=== PATIENT | male | born 1965 | race Two or more races ===

== ENCOUNTER 2024-07-21 11:41 | Emergency (ER) | payer MEDICAID, SELFPAY ==
--- NOTE | 2024-07-21 11:54 | EKG_ITS ---
[facility] Test Date: 2024-07-21 Pat Name: NALDO MEJIA Department: Room: - Gender: Male [employer]worker [employer]: : 1965 Requested By: Colby Alcaraz (ALEJANDRO) Order Number: [id number] Reading MD: Colby Alcaraz (INFUSION RN) Measurements Intervals [place] Rate: 67 P: 73 ME: 161 QRS: -23 QRSD: 90 T: 58 QT: 369 QTc: 391 Interpretive Statements SINUS RHYTHM BORDERLINE LEFT AXIS DEVIATION [QRS AXIS < -20] No previous ECG available for comparison /store/S0/[id number]
--- NOTE | 2024-07-21 12:03 | XR_ITS ---
Examination: PA lateral chest 2 views TECHNIQUE: Upright PA lateral chest 2 views Exam date and time: July 21, 2024 1210 hours INDICATIONS: Chest pain 3 years worse today with rectal bleeding also intermittent 3 years FINDINGS: Normal heart size Moderate hyperexpansion No pneumonia or pulmonary edema 6 mm nodule left lower lobe IMPRESSION: COPD In the absence of prior chest films recommend 3 month follow-up PA chest to document stability of 6 mm nodule left lower lobe
--- NOTE | 2024-07-21 12:03 | PD.EDRME ---
Rapid Medical Screening Exam RME Arrival date/time: 07/21/24 11:41 59-year-old male presents the emergency department complaints of right-sided chest pain and rectal bleeding Chief Complaint: Chest Pain
[2024-07-21 12:11] VITALS: BP 118/74; PULSE 59; RESP 18; TEMP 36.4; O2SAT 98
[2024-07-21 12:12] VITALS: BMI 22.8
[2024-07-21 12:31] LABS: Basophils % (Auto) 1 % (0-2.5); Eosinophils # (Auto) 0.1 Thou/mm3 (0.0-0.5); Eosinophils % (Auto) 1 % (0-10); Hemoglobin 13.2 g/dL (13.5-16.0); Immature Granulocytes % (Auto) 0 % (0-0); Immature Granulocytes Auto 0.02 Thou/mm3 (0.00-0.00); Lymphocytes # (Auto) 1.7 Thou/mm3 (1.0-4.8); Lymphocytes % (Auto) 32 % (10-50); Mean Corpuscular HGB Conc 34.7 g/dl (31.0-37.0); Mean Corpuscular Hemoglobin 32.5 pg (25.0-35.0); Mean Corpuscular Volume 94 fL (80-100); Monocytes # (Auto) 0.5 Thou/mm3 (0.0-0.8); Monocytes % (Auto) 8 % (0-12); Neutrophils # (Auto) 3.1 Thou/mm3 (1.8-7.7); Neutrophils % (Auto) 58 % (37-80); Nucleated Red Blood Cell % 0 /100 WBC (0); Platelet Count 161 Thou/mm3 (140-440); RDW Standard Deviation 44.2 fL (35.1-43.9); Red Blood Count 4.06 Miln/mm3 (4.50-5.90); White Blood Count 5.4 Thou/mm3 (3.8-10.6)
[2024-07-21 12:46] LABS: Partial Thromboplastin Time 25.9 Seconds (22.0-36.0); Prothrombin Time 11.2 Seconds (9.0-12.2)
[2024-07-21 12:55] LABS: Alanine Aminotransferase 10 U/L (10-49); Albumin, Serum 5.1 gm/dL (3.5-5.0); Albumin/Globulin Ratio 1.8 (1.2-2.2); Alkaline Phosphatase 80 U/L (46-116); Anion Gap 7 (7-16); Aspartate Amino Transferase < 8 U/L (0-34); BUN/Creatinine Ratio 13 Ratio (12-20); Bilirubin,Total 0.8 mg/dL (0.3-1.2); Blood Urea Nitrogen 13 mg/dL (9-23); Calcium 10.1 mg/dL (8.3-10.6); Calcium (Corrected) 10.1 mg/dL (8.5-10.1); Carbon Dioxide 28.3 mMol/L (20.0-31.0); Chloride 103 mMol/L (98-107); Estimated Creatinine Clearance 68.2 mL/min (>60); Globulin 2.8 gm/dL (2.3-3.5); Glucose 72 mg/dL (74-106); Lipase 64 U/L (12-53); Magnesium 2.1 mg/dL (1.6-2.6); Osmolality,Calculated 274 (275-295); Potassium 4.3 mMol/L (3.4-5.1); Sodium 138 mMol/L (136-145); Total Protein 7.9 gm/dL (5.7-8.2); Troponin I < 0.020 ng/mL (0.0-0.045); eGFR > 60 See Note
[2024-07-21 13:09] LABS: B-Type Natriuretic Peptide < 20 pg/mL (0-100)
[2024-07-21 13:58] LABS: Collection Type, Urine Clean Catch; Squamous Epithelial Cell,Urine 0 /hpf (0-5); WBC,Urine 0 /hpf (0-5)
[2024-07-21 14:07] LABS: Bilirubin,Urine Negative (Negative); Blood,Urine Negative (Negative); Clarity,Urine Clear (Clear/Hazy); Color,Urine Lt-Yellow (Lt Yel-Yel); Glucose, Urine Negative (Negative); Ketones,Urine Negative (Negative); Leukocyte Esterase,Urine Negative (Negative); Nitrite,Urine Negative (Negative); PH,Urine 6.5 (5.0-7.0); Protein,Urine Negative (Neg - Trace); RBC,Urine < 1 /hpf (0-3); Specific Gravity,Urine 1.019 (1.001-1.035); Urobilinogen,Urine Negative mg/dL (0.0-1.0)
[2024-07-21 14:14] LABS: Amphetamine/Methamp Scrn,U Negative (Negative); Barbiturate Screen,Urine Negative (Negative); Benzodiazepines Screen,Urine Negative (Negative); Benzoylecgonine Screen, Ur Negative (Negative); Fentanyl Screen,Urine Negative (Negative); Opiate Screen,Urine Negative (Negative); THC Screen,Urine Negative (Negative)
[2024-07-21 15:45] VITALS: BP 122/77; PULSE 60; RESP 16; TEMP 37.2; O2SAT 99
--- NOTE | 2024-07-21 16:35 | PD.EDCHEST ---
ED Chest Pain RME/HPI General Chief Complaint: Chest Pain Stated Complaint: CHEST PAIN WITH RECTAL BLEEDING X 3 YRS Arrival date/time: 07/21/24 11:41 Limitations: no limitations RME / HPI RME / HPI narrative: 07/21/24 11:41 59-year-old male presents the emergency department complaints of right-sided chest pain and rectal bleeding DR. SHERMAN DAO ED EVALUATION: 59 year old male presents to the ED for complaint of chest pain today. States his chest pain had been on/off over the course of 3 years and located to the left side. However noted in the last month the pain is occurring more frequently while sleeping/resting/working and located on the right side. States last night he had difficulty sleeping due to the pain that was accompanied by shortness of breath. Denies any known aggravating/modifying factors. Denies any fevers, chills, sweats, cough, abdominal pain, n/v/d, or urinary symptoms. Patient additionally reports rectal bleeding going on for years and previously has consulted with PCP. States the rectal bleeding is worse with doing any strenuous work and reportedly was going to follow up with a surgeon which he has yet to do. Family hx: Heart attack Related Data Previous Rx's ?Medication ?Instructions ?Recorded ibuprofen 600 mg tablet 600 mg PO Q8H PRN fever or pain 05/31/19 #30 tabs ibuprofen 600 mg tablet 600 mg PO Q8H PRN pain #30 tabs 10/13/20 hydroxyzine HCl 25 mg tablet 25 mg PO TID PRN anxiety #20 tabs 07/21/24 Allergies Allergy/AdvReac Type Severity Reaction Status Date / Time No Known Allergies Allergy Verified 07/21/24 11:43 Review of Systems Review of Systems Narrative Review of Systems: GEN: No fever, no chills, no weight loss EYES: No discharge, no visual changes, no pain HEENT: No ear pain, no congestion, no sore throat PULM: +shortness of breath, no cough, no congestion CV: + chest pain, no palpitations GI: No nausea, no vomiting, no diarrhea, no pain, no constipation, +rectal bleeding per patient : No frequency, no urgency, no dysuria MUSC/SKEL: No joint pain, no back pain SKIN: No rash NEURO: No weakness, no headache Past Medical History Past Medical History CARDIAC: Negative Congestive Heart Failure RESPIRATORY: Negative Chronic Obstructive Pulmonary Disease (COPD) GENITOURINARY: Negative Renal Disease ENDOCRINE: Negative Diabetes Mellitus Type 1 or Diabetes Mellitus Type 2 Social History SMOKING STATUS: Never smoker ED Exam General Limitations: Present no limitations General appearance: Present alert and in no apparent distress Head Head exam: Present atraumatic, normocephalic and normal inspection Eye Eye exam: Present normal appearance, PERRL and EOMI ENT ENT exam: Present normal exam, normal oropharynx and mucous membranes moist Neck Neck exam: Present normal inspection, full ROM and trachea midline Chest Chest inspection: Present normal inspection and symmetric chest wall rise Respiratory Respiratory exam: Present normal lung sounds bilaterally Cardiovascular Cardiovascular exam: Present regular rate, normal rhythm and normal heart sounds Abdominal Exam Abdominal exam: Present soft and normal bowel sounds Extremities Exam Extremities exam: Present normal inspection and full ROM Back Exam Back exam: Present normal inspection and full ROM Neurological Exam Neurological exam: Present alert, oriented X3 and CN II-XII intact Psychiatric Psychiatric exam: Present normal affect and normal mood Skin Skin exam: Present warm, dry, intact and normal color Course Course Course Narrative: chest xray ordered to help determine etiology of chest pain and shortness of breath. Quality Measures none Orders Category Date Time Status EKG (ED ONLY) *Do not use* NOW Care 07/21/24 11:54 Completed EKG (ED Only) Stat Exams 07/21/24 11:54 Draft XR chest 2V Stat Exams 07/21/24 12:03 Completed B-Type Natriuretic Peptide Stat Lab 07/21/24 12:20 Completed CBC Stat Lab 07/21/24 12:20 Completed Comprehensive Metabolic Panel Stat Lab 07/21/24 12:20 Completed Drug Screen,Urine Stat Lab 07/21/24 13:45 Completed Lipase Stat Lab 07/21/24 12:20 Completed Magnesium Stat Lab 07/21/24 12:20 Completed Partial Thromboplastin Time Stat Lab 07/21/24 12:20 Completed Prothrombin Time with INR Stat Lab 07/21/24 12:20 Completed Troponin I Stat Lab 07/21/24 12:20 Completed Urinalysis Stat Lab 07/21/24 13:45 Completed Reevaluation(s) Reevaluation #1: Patient remains clinically stable throughout the emergency department visit. We reviewed all the results, analysis, and treatment plans. Patient is amenable to discharge. Strict return precautions were outlined. Patient was discharged in stable condition. Vital Signs Vital signs: Vital Signs Temperature 97.5 F 07/21/24 12:11 Pulse Rate 59 L 07/21/24 12:11 Respiratory Rate 18 07/21/24 12:11 Blood Pressure 118/74 07/21/24 12:11 Pulse Oximetry (%) 98 07/21/24 12:11 Oxygen Delivery Method Room Air 07/21/24 12:11 Pulse ox is 98% on room air which is adequate. Chest Pain MDM Narrative MDM Narrative:: Emilie Peña am scribing for and in the presence of Dr. Seo. Patient data External records reviewed:: [facility] previous records (I reviewed ED visit on 10/13/2020) Clinical information provided by:: patient Social determinants that could affect healthcare access:: none Patient has the following chronic illnesses:: None How is presenting disease/condition affected by chronic disease/condition?: no chronic disease Evaluation data The following diagnostics were reviewed and interpreted by me:: lab results, radiology exam(s) and EKG tracing(s) (NSR, HR 67, normal axis, no ectopy, LAD ) Lab and/or radiology exams considered but not ordered:: None Interpretation Summary: Ordering Physician: Colby Alcaraz NP, NP Date of Service: 07/21/24 Procedure(s): XR chest 2V Accession Number(s): [id number] cc: Lissa LUKE)Colby NP; Praveen Vasquez MD; Mariann Velázquez NP~ Examination: PA lateral chest 2 views TECHNIQUE: Upright PA lateral chest 2 views Exam date and time: July 21, 2024 1210 hours INDICATIONS: Chest pain 3 years worse today with rectal bleeding also intermittent 3 years FINDINGS: Normal heart size Moderate hyperexpansion No pneumonia or pulmonary edema 6 mm nodule left lower lobe IMPRESSION: COPD In the absence of prior chest films recommend 3 month follow-up PA chest to document stability of 6 mm nodule left lower lobe Dictated By: Praveen Vasquez MD Signed By: <Electronically signed by Praveen Vasquez MD in OV> 07/21/24 1253 Medications / Prescriptions Medications or Prescriptions considered but not ordered:: None Medication administrations:: None Consultations Consultation(s) initiated? (list below): No Diagnosis Most likely diagnosis given after review of the tests above:: Anxiety Atypical chest pain Painless rectal bleeding Admission Indicated Admission indicated?: not indicated Admission Request Was there a request for admission?: No Disposition Plan Disposition Plan: Discharge Discharge Attestation Discharge Attestation: The patient and all family members were given an opportunity to ask questions and understood the discharge instructions. Discharge instructions specifically effects, indications for sooner follow up or return to the emergency department, and the expected course of current diagnosis. Patient condition: Stable Discharge Plan Plan Patient Disposition: HOME (Self Care) Disposition Comment: Stable for discharge Patient condition on transfer: Stable Prescriptions/Referrals Prescriptions/Med Rec: New hydroxyzine HCl 25 mg tablet 25 mg PO TID PRN (Reason: anxiety) Qty: 20 0RF Rx Instructions: Probable anxiety attacks No Action ibuprofen 600 mg tablet 600 mg PO Q8H PRN (Reason: fever or pain) Qty: 30 0RF ibuprofen 600 mg tablet 600 mg PO Q8H PRN (Reason: pain) Qty: 30 0RF Referrals: Luisana Hernadez MD [Physician] - In 1 week Mariann Velázquez NP [Primary Care Provider] - In 1 week Problem List Clinical Impression: Anxiety, Atypical chest pain, Painless rectal bleeding Patient/Caregiver Discharge Instructions Discharge Activity: activity as tolerated Education Materials: Bleeding Rectal Evaluate Treat, ED Anxiety Reaction Additional Instructions: Return to the emergency department for any worsening or any further medical problems Please follow-up with your primary care doctor within the next several days. For your rectal bleeding you can follow-up with Dr. Hernadez. Dr. Hernadez is a automation developer who is a specialist in the colon. You may or may not need a camera put up into your colon Print Language: [place] Islander Stand Alone Forms: Josie Award Info., Patient Portal Info Letter
== END 2024-07-21 18:02 | disposition home or self-care (01) ==
PROVIDERS: Nurse Practitioner Primary Care; Emergency Provider Emergency Medicine; PCP Nurse Practitioner Family
DX: J44.9 Chronic obstructive pulmonary disease, unspecified (principal); F41.9 Anxiety disorder, unspecified; K62.5 Hemorrhage of anus and rectum
CPT/HCPCS: 36415; 71046; 80053; 80307; 81001; 83690; 83735; 83880; 84484; 85025; 85610; 85730; 93005; 99283

== ENCOUNTER 2025-06-26 13:26 | Emergency (ER) | payer MEDICAID, SELFPAY ==
[2025-06-26 13:33] VITALS: BP 116/76; PULSE 75; RESP 16; TEMP 36.5; O2SAT 98
--- NOTE | 2025-06-26 13:37 | EKG_ITS ---
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
[2025-06-26 13:38] VITALS: PULSE 63; RESP 16; O2SAT 98; BMI 24.3
--- NOTE | 2025-06-26 13:59 | XR_ITS ---
Examination: CT brain head without contrast. 2-D sagittal coronal reconstructions Date and time of exam: June 26, 2025, 1425 hours, comparison May 30, 2019 INDICATIONS: Onset generalized head pain today CTDI: vol (mGy): 53.4 DLP: (mGycm): 1029 Technique: Multiple CT axial sections of the brain have been obtained, 5 mm slice thickness. Contrast has not been administered. 2-D sagittal, coronal reconstructions have been obtained Low dose protocols were performed. One or more of the following dose reduction techniques were used; automated exposure control, adjustment of the mA and/or KV according to patient size, use of iterative reconstruction technique. Findings: No significant ventricular enlargement. Intra-axial or extra-axial hemorrhage density is not seen. No mass effect or midline shift Basal cisterns are not remarkable. Fourth ventricle is midline. Cranial vault intact. Impression: Negative for acute hemorrhage, mass effect or midline shift Advise clinical correlation and follow-up accordingly
--- NOTE | 2025-06-26 14:00 | XR_ITS ---
EXAMINATION: AP chest single view TECHNIQUE: AP Right chest single view Date and time: June 26, 2025, 1436 hours, comparison July 21, 2024 INDICATIONS: Headache shortness of breath today. FINDINGS: Normal heart size No pneumonia or pulmonary edema Prominent osteopenia IMPRESSION: No active disease
--- NOTE | 2025-06-26 14:02 | EDNOTE_ITS ---
ED Syncope RME/HPI General Chief Complaint: Fall Stated Complaint: SYNCOPE Time Seen by Provider: 06/26/25 13:53 Arrival date/time: 06/26/25 13:26 54-year-old male patient with recent diagnosis of shingles in his back, just came from the pharmacy to get his his shingles medication, when he arrived home he was cooking, and patient developed syncope twice. Patient does not remember what happened. Patient family called 911. On my initial evaluation patient was noted to be having blood pressure that is on the above 90s systolic. Patient is alert and oriented x 3 however complaining of headache on the right side and dizziness. Denies any chest pain no abdominal pain no vomiting no fever. Patient received 800 cc of IV LR and blood pressure now went up to 116/76 Related Data Previous Rx's ?Medication ?Instructions ?Recorded ibuprofen 600 mg tablet 600 mg PO Q8H PRN fever or p ain 05/31/19 #30 tabs ibuprofen 600 mg tablet 600 mg PO Q8H PRN pain #30 t abs 10/13/20 hydroxyzine HCl 25 mg tablet 25 mg PO TID PRN anxiety #20 tabs 07/21/24 Allergies Allergy/AdvReac Type Severity Reaction Status Date / Time No Known Allergies Allergy Verified 07/21/24 11:43 Review of Systems Review of Systems Narrative Review of Systems: Review of system reviewed and within normal limits except mentioned in HPI ED Exam Narrative Physical exam: VITAL SIGNS: Reviewed. GENERAL APPEARANCE: Alert and interactive, follows commands, no acute distress, HEAD AND FACE: Non-traumatic. ENT: PERRL, pink conjunctivitis, eyelid no trauma, Mucous membrane moist. NECK: Supple, nontender, no nuchal rigidity. CHEST: No tenderness, no crepitus, no paradoxical movement, no retractions. LUNGS: Clear, well ventilated, symmetric, no rales, no wheezing, no ronchi, no stridor, good breath sounds bilaterally. HEART: Regular rate, regular rhythm, no murmur, no gallops. ABDOMEN: Soft, positive bowel sounds, nondistended, no guarding, nontender, no rebound, no masses, RECTAL: Deferred. GENITAL: Deferred. NEUROLOGICAL: Gross motor function intact sensory function intact, Appropriate for age. MUSCULOSKELETAL: low back nontender, full range of motion. EXTREMITIES: Nontender, full range of motion. SKIN: Color pink, dry, no rash, no lacerations, no abrasions, no contusions. LYMPHATICS: Deferred. Course Quality Measures none Orders Category Date Time Status EKG (ED ONLY) *Do not use* NOW Care 06/26/25 13:37 Completed EKG (ED ONLY) *Do not use* NOW Care 06/26/25 14:[address] head/brain wo con Stat Exams 06/26/25 13:59 Completed EKG (ED Only) Stat Exams 06/26/25 13:37 Draft EKG (ED Only) Stat Exams 06/26/25 13:59 Ordered XR chest 1V Stat Exams 06/26/25 14:00 Completed CBC Stat Lab 06/26/25 14:07 Completed Comprehensive Metabolic Panel Stat Lab 06/26/25 14:07 Completed Partial Thromboplastin Time Stat Lab 06/26/25 14:07 Completed Troponin I Stat Lab 06/26/25 14:07 Completed Urinalysis, C/S if Indicated Stat Lab 06/26/25 14:38 Completed Ringers Lactated 1000 ml [Lactated Ringers] 1,000 ml Med 06/26/25 14:00 Discontinued IV 999 mls/hr Vital Signs Vital signs: Vital Signs Temperature 97.7 F 06/26/25 13:33 Pulse Rate 75 06/26/25 13:33 Respiratory Rate 16 06/26/25 13:33 Blood Pressure 116/76 06/26/25 13:33 Pulse Oximetry (%) 98 06/26/25 13:33 Oxygen Delivery Method Room Air 06/26/25 13:33 Syncope MDM Narrative MDM Narrative:: 06/26/25 13:26 54-year-old male patient with recent diagnosis of shingles in his back, just came from the pharmacy to get his his shingles medication, when he arrived home he was cooking, and patient developed syncope twice. Patient does not remember what happened. Patient family called 911. On my initial evaluation patient was noted to be having blood pressure that is on the above 90s systolic. Patient is alert and oriented x 3 however complaining of headache on the right side and dizziness. Denies any chest pain no abdominal pain no vomiting no fever. Patient received 800 cc of IV LR and blood pressure now went up to 116/76 EKG shows sinus rhythm, ventricular rate of [address] segment elevation depression noted. Laboratory workup all came back unremarkable. CT scan of the head came back normal chest x-ray came back unremarkable patient blood pressure was noted to be 116/76, was noted to be walking to the restroom without recurrence of syncope. He is stable for charged home. Patient data External records reviewed:: None Clinical information provided by:: patient Social determinants that could affect healthcare access:: none Patient has the following chronic illnesses:: None How is presenting disease/condition affected by chronic disease/condition?: no chronic disease Evaluation data The following diagnostics were reviewed and interpreted by me:: lab results, radiology exam(s) and EKG tracing(s) Lab and/or radiology exams considered but not ordered:: None Interpretation Summary: See above none Medications / Prescriptions Medications or Prescriptions considered but not ordered:: None Medication administrations:: Medication Administration History Discontinued Medications Lactated Ringer's (Lactated Ringers) 1,000 mls @ 999 mls/hr IV .Q1H1M ONE Stop: 06/26/25 15:00 Last Infusion: 06/26/25 15:12 Dose: Infused Documented By: Admin: 06/26/25 14:07 Dose: 999 mls/hr Documented By: ESTEFANY IV fluids Consultations Consultation(s) initiated? (list below): No Diagnosis Syncope Differential Diagnosis: syncope due to orthostatic hypotension, vasovagal syncope and dehydration Most likely diagnosis given after review of the tests above:: Syncope Admission Indicated Admission indicated?: not indicated Admission Request Was there a request for admission?: No Disposition Plan Disposition Plan: Discharge Discharge Attestation Discharge Attestation: The patient and all family members were given an opportunity to ask questions and understood the discharge instructions. Discharge instructions specifically effects, indications for sooner follow up or return to the emergency department, and the expected course of current diagnosis. Patient condition: Stable Discharge Plan Plan Patient Disposition: HOME (Self Care) Discharge Disposition comment: stable Prescriptions/Referrals Prescriptions/Med Rec: No Action ibuprofen 600 mg tablet 600 mg PO Q8H PRN (Reason: fever or pain) Qty: 30 0RF ibuprofen 600 mg tablet 600 mg PO Q8H PRN (Reason: pain) Qty: 30 0RF hydroxyzine HCl 25 mg tablet 25 mg PO TID PRN (Reason: anxiety) Qty: 20 0RF Rx Instructions: Probable anxiety attacks Problem List Clinical Impression: Syncope Patient/Caregiver Discharge Instructions Discharge Activity: activity as tolerated Education Materials: Causes of Syncope Additional Instructions: Thank you for the opportunity for serving you today. You are stable for discharged . You are advised to: Follow-up with your PCP in 1 to 2 days Return to ED for worsening of symptoms Increase oral fluids Print Language: Ukrainian Stand Alone Forms: Josie Award Info., Patient Portal Info Letter PA/BEATRIZ Supervising Physician DANETTE/BEATRIZ Supervising Physician: MD Preethi
[2025-06-26] MEDS: RINGERS LACTATED 1000 ML 1,000 ML 999 ML IV (14:07)
[2025-06-26 14:25] LABS: Basophils # (Auto) 0.0 Thou/mm3 (0.0-0.2); Basophils % (Auto) 0 % (0-2.5); Eosinophils # (Auto) 0.0 Thou/mm3 (0.0-0.5); Eosinophils % (Auto) 0 % (0-10); Hematocrit 35.5 % (41.0-53.0); Hemoglobin 12.6 g/dL (13.5-16.0); Immature Granulocytes Auto 0.02 Thou/mm3 (0.00-0.00); Lymphocytes # (Auto) 1.8 Thou/mm3 (1.0-4.8); Lymphocytes % (Auto) 35 % (10-50); Mean Corpuscular HGB Conc 35.5 g/dl (31.0-37.0); Mean Corpuscular Hemoglobin 32.0 pg (25.0-35.0); Mean Corpuscular Volume 90 fL (80-100); Monocytes # (Auto) 0.4 Thou/mm3 (0.0-0.8); Monocytes % (Auto) 8 % (0-12); Neutrophils # (Auto) 2.9 Thou/mm3 (1.8-7.7); Neutrophils % (Auto) 56 % (37-80); Nucleated Red Blood Cell # 0.00 Thou/mm3 (0.00-0.00); Nucleated Red Blood Cell % 0 /100 WBC (0); Platelet Count 179 Thou/mm3 (140-440); RDW Standard Deviation 45.1 fL (35.1-43.9); Red Blood Count 3.94 Miln/mm3 (4.50-5.90); White Blood Count 5.1 Thou/mm3 (3.8-10.6)
[2025-06-26 14:39] LABS: Partial Thromboplastin Time 23.1 Seconds (22.0-36.0)
[2025-06-26 14:46] LABS: Alanine Aminotransferase 129 U/L (10-49); Albumin, Serum 4.3 gm/dL (3.5-5.0); Albumin/Globulin Ratio 1.8 (1.2-2.2); Alkaline Phosphatase 101 U/L (46-116); Anion Gap 7 (7-16); Aspartate Amino Transferase 48 U/L (0-34); BUN/Creatinine Ratio 11 Ratio (12-20); Bilirubin,Total 0.8 mg/dL (0.3-1.2); Blood Urea Nitrogen 10 mg/dL (9-23); Calcium 9.5 mg/dL (8.3-10.6); Calcium (Corrected) 9.5 mg/dL (8.5-10.1); Carbon Dioxide 27.6 mMol/L (20.0-31.0); Chloride 106 mMol/L (98-107); Creatinine (Component) 0.9 mg/dL (0.6-1.3); Estimated Creatinine Clearance 80.7 mL/min (>60); Globulin 2.4 gm/dL (2.3-3.5); Glucose 88 mg/dL (74-106); Osmolality,Calculated 279 (275-295); Potassium 3.9 mMol/L (3.4-5.1); Sodium 141 mMol/L (136-145); Total Protein 6.7 gm/dL (5.7-8.2); Troponin I < 0.020 ng/mL (0.0-0.045); eGFR > 60 See Note
[2025-06-26 14:52] LABS: Collection Type, Urine Clean Catch
[2025-06-26 15:12] LABS: Bacteria,Urine Rare; Bilirubin,Urine Negative (Negative); Blood,Urine Negative (Negative); Color,Urine Lt-Yellow (Lt Yel-Yel); Culture Indicated,Urine Not Indicated; Glucose, Urine Negative (Negative); Ketones,Urine Negative (Negative); Leukocyte Esterase,Urine Negative (Negative); Nitrite,Urine Negative (Negative); PH,Urine 7.5 (5.0-7.0); Protein,Urine Negative (Neg - Trace); RBC,Urine 6 /hpf (0-3); Specific Gravity,Urine 1.021 (1.001-1.035); Squamous Epithelial Cell,Urine < 1 /hpf (0-5); Urobilinogen,Urine Negative mg/dL (0.0-1.0); WBC,Urine 2 /hpf (0-5)
[2025-06-26 15:26] LABS: Clarity,Urine Hazy (Clear/Hazy)
[2025-06-26 16:07] VITALS: BP 134/83; PULSE 61; RESP 18; TEMP 36.7; O2SAT 96
== END 2025-06-26 16:14 | disposition home or self-care (01) ==
LOC: SERX 16:52
PROVIDERS: Nurse Practitioner Family; Emergency Provider Family Medicine
DX: B02.9 Zoster without complications (principal)
CPT/HCPCS: 36415; 70450; 71045; 80053; 81001; 84484; 85025; 85730; 93005; 96360; 99284; J7120